=== PATIENT | male | born 1945 | race Caucasian/White ===

== ENCOUNTER → 2021-04-25 | Outpatient (CLI) | payer MEDICARE ==
[2015-02-14 15:00] VITALS: BP 114/51
[~2021-04-25] MED LIST: ACTOS PO; ASPI81TA59 PO; ATOR40TA59 PO; AZIT1PAC9 PO; CEPH-264 PO; CIPR500T94 PO; ERTA1VIA2 IV; GABA600T7 PO; INSU100I16 SQ; LIPITOR PO; MINE454C6 TP; NIAC500T PO; OLME1TAB25 PO; PIOG45TA40 PO
--- NOTE | 2021-04-25 16:51 | RAD ---
EXAMINATION: US RENAL BILAT INDICATION: 76 years, Male, acute kidney injury. COMPARISON: None TECHNIQUE: Grayscale and limited color Doppler evaluation of the kidneys and bladder was performed. FINDINGS: RIGHT KIDNEY: MEASURES: 12.2 x 5.8 x 6.6 cm. MORPHOLOGY/PARENCHYMA: Normal corticomedullary differentiation with no shadowing calculus or discrete masses. COLLECTING SYSTEM: No hydronephrosis. LEFT KIDNEY: MEASURES: 11.4 x 4.7 x 5.4 cm. MORPHOLOGY/PARENCHYMA: Normal corticomedullary differentiation with no shadowing calculus or discrete masses. COLLECTING SYSTEM: No hydronephrosis. URINARY BLADDER: Unremarkable. Bilateral ureteral jets are present. IMPRESSION: Unremarkable renal ultrasound. Electronically signed by: Concepción Cohn MD (04/25/2021 4:48 PM) [facility]
== END ==
LOC: US 15:29
PROVIDERS: ATTEND Internal Medicine
DX: N17.9 Acute kidney failure, unspecified (principal)
CPT/HCPCS: 76770